=== PATIENT | male | born 1970 | race Caucasian/White ===

== ENCOUNTER → 2019-03-04 | Outpatient (CLI) | payer BC ==
--- NOTE | 2019-03-04 16:13 | XR ---
EXAMINATION TYPE: XR shoulder limited 2 views LT, XR knee limited 2 views LT DATE OF EXAM: 03/04/2019 COMPARISON: NONE HISTORY: 48-year-old male left knee and shoulder pain. FINDINGS: Left shoulder: Moderate degenerative joint space narrowing and marginal spurring at the acromioclavicular joint. Sub acromial space is preserved. No tenderness or calcifications. No acute fracture, subluxation, or disl ocation. Visualized left hemithorax is clear. Left knee: No acute fracture, subluxation, or dislocation seen. No significant knee joint effusion. The knee is completely extended. IMPRESSION: Left shoulder and knee without acute osseous abnormality seen. 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
== END | disposition home or self-care (01) ==
LOC: RADXRYALE 12:09
PROVIDERS: ATTEND Internal Medicine
DX: M19.012 Primary osteoarthritis, left shoulder (principal)

== ENCOUNTER → 2024-05-11 | Outpatient (CLI) | payer BC ==
--- NOTE | 2024-05-11 08:27 | CTL ---
EXAMINATION TYPE: CT Low Dose Lung DATE OF EXAM: 05/11/2024 8:19 AM CLINICAL INDICATION: Male, 54 years old with history of Z12.2 LUNG CA SCR F17.210 CURRENT SMOKER; CUR RENT SMOKER , history of tobacco use. COMPARISON: None. TECHNIQUE: Multiple axial non-contrast scans were obtained from approximately the lung apices through the upper abdomen. Coronal and sagittal reformatted images were obtained. Low dose technique was uti lized. MIP were created on a separate workstation and submitted for review. CT DLP: 84.4 mGycm, Automated exposure control for dose reduction was used. CT Contrast: Contrast used: None Oral contrast used: None FINDINGS: ======== Lack of intravenous contrast and low dose technique limits the evaluation of the vascular and soft ti ssue structures. LUNGS: No evidence of pulmonary fibrosis. No evidence of focal consolidation, pneumothorax or pleural effusion. Centrilobular emphysema changes. Nodules: RUL: 9.1 mm series 5 image 19. Solid parenchymal abnormality series 5 image 38. RML: 7.4 mm series 7 image 44, RLL: None. MARIBEL: 5 mm series 5 image 29. LLL: None. Other scattered sub-4 mm parenchymal abnormalities scattered throughout the lungs. AIRWAY: Patent and unremarkable. HEART: Size within normal limits. MEDIASTINUM: No gross evidence of adenopathy. Partially calcified lymph nodes in the mediastinum. VASCULATURE: No aortic aneurysm. MUSCULOSKELETAL: No acute osseous abnormalities SOFT TISSUES/LYMPH NODES: Unremarkable. LOWER NECK: No significant findings. UPPER ABDOMEN: Scattered calcified granulomas in the spleen. IMPRESSION: 1. Right upper lobe 9 mm right middle lobe 7 mm pulmonary nodules.e. 2. Moderate emphysema. 3. Sequela of chronic granulomatous disease. CT LUNG RAD AND CT CHEST RECOMMENDATION: Lung-Rad 4A Suspicious: Follow-up 3 month LDCT or PET/CT may be used when there is a > 8 mm solid component. S Modifier (other clinically significant findings): None Recommend smoking cessation (if current smoker), or continuation of smoking cessation (if prior smoke r). Annual screening for lung cancer with low-dose computed tomography is recommended in adults ages 55 to 77 years who have a 30 pack-year smoking history and currently smoke or have quit within the pa st 15 years. Screening should be discontinued once a person has not smoked for 15 years or develops a health problem that substantially limits life expectancy or the ability or willingness to have curat niharika lung surgery. Lung rads 2021 [email or web address] [facility], , 05/11/2024 8:25 AM
== END | disposition home or self-care (01) ==
LOC: RADCTMAIN 07:58
PROVIDERS: ATTEND Family Medicine
CPT/HCPCS: 71271

== ENCOUNTER → 2024-09-13 | Outpatient (CLI) | payer BC ==
--- NOTE | 2024-09-15 16:46 | PE ---
EXAMINATION TYPE: PET CT fusion skull to thigh DATE OF EXAM: 09/13/2024 COMPARISON: Prior low-dose lung screening CT May 11, 2024 HISTORY: Solitary pulmonary nodule TECHNIQUE: Following the intravenous administration of 12.0 mCi of F-18 FDG, whole body images are p erformed from the skull base to the midthigh. Images are reviewed on the computer in the coronal, ax ial, and sagittal planes. Reconstructed rotating images are created on independent workstation and r eviewed on the computer. A localization and attenuation correction CT is performed in conjunction w ith the PET scan. Blood glucose level equals 95. SCAN: Initial Scan FINDINGS: SKULL BASE AND NECK: No suspicious abnormal hypermetabolic uptake. CHEST, MEDIASTINUM, AND HILAR REGION: At least moderate underlying emphysematous change is redemonstr ated. There is a spiculated 9 mm nodule in the right upper lobe redemonstrated with abnormal hypermet abolic uptake, max SUV is 5.51. There is a 10 mm right lower lung nodule axial image 119 with abnorma l hypermetabolic uptake, Max SUV is 3.03. There is abnormal hypermetabolic uptake in the 1.3 x 1.1 cm right tracheobronchial lymph node axial i mage 94, max SUV is 4.85. ABDOMEN AND PELVIS: No suspicious abnormal hypermetabolic uptake. Normal excretion is seen. No hyperm etabolic adrenal masses are noted. OSSEOUS STRUCTURES: No suspicious abnormal hypermetabolic uptake. OTHER CT: Moderate mucosal thickening in the left maxillary sinus with dependent fluid. Multiple calcified mediastinal lymph nodes are seen. Multiple round calcifications of the spleen cons istent with products of old granulomatous disease. Sigmoid colonic diverticulosis is present. Surgical changes in the cervical spine is noted. IMPRESSION: Abnormal hypermetabolic uptake suspicious for malignancy in 2 right lung nodules and slig htly enlarged mediastinal lymph node. No metastatic disease is seen. [facility], , 09/15/2024 4:44 PM
== END | disposition home or self-care (01) ==
LOC: RADPETMAIN 07:56
PROVIDERS: ATTEND Family Medicine
DX: R91.1 Solitary pulmonary nodule (principal); R59.0 Localized enlarged lymph nodes; R94.8 Abnormal results of function studies of other organs and systems
CPT/HCPCS: 78815; A9552

== ENCOUNTER 2024-11-27 14:36 | Emergency (ER) | payer BC, OTHER ==
[2024-11-27 14:42] VITALS: RESP 18
--- NOTE | 2024-11-27 15:37 | ED ---
General Adult HPI - General Chief complaint: Skin/Abscess/Foreign Body Stated complaint: [facility]HS metal in nose Time Seen by Provider: 11/27/24 14:43 Source: patient, RN notes reviewed Mode of arrival: ambulatory Limitations: no limitations - History of Present Illness Initial comments: 54-year-old male presents to the emergency department for evaluation of potential metal in his nose. Patient states that a metal pin broke into pieces while he was at work on Monday. He notes that he had foreign body sensation in the left side of his nose. He took a magnet over his nose and felt that it was pulling. He denies any pain. Denies any malodorous nasal drainage. He is up-to-date on tetanus vaccine. - Related Data Previous Rx's Medication Instructions Recorded Cephalexin [Keflex] 500 mg PO Q6HR #28 cap 11/27/24 Allergies Allergy/AdvReac Type Severity Reaction Status Date / Time No Known Allergies Allergy Verified 11/27/24 14:42 Review of Systems ROS Statement: Those systems with pertinent positive or pertinent negative responses have been documented in the HPI. ROS Other: All systems not noted in ROS Statement are negative. Past Medical History Past Medical History: No Reported History History of Any Multi-Drug Resistant Organisms: None Reported Past Surgical History: Appendectomy Past Psychological History: No Psychological Hx Reported Smoking Status: Never smoker Past Alcohol Use History: Daily Past Drug Use History: Marijuana General Exam Limitations: no limitations General appearance: alert, in no apparent distress Head exam: Present: atraumatic, normocephalic, normal inspection Eye exam: Present: normal appearance, PERRL, EOMI. Absent: scleral icterus, conjunctival injection, periorbital swelling ENT exam: Present: normal exam, mucous membranes moist, other (There is an abrasion to the left side of the nose with no visible foreign body within the nare) Respiratory exam: Present: normal lung sounds bilaterally. Absent: respiratory distress, wheezes, rales, rhonchi, stridor Cardiovascular Exam: Present: regular rate, normal rhythm, normal heart sounds. Absent: systolic murmur, diastolic murmur, rubs, gallop, clicks Neurological exam: Present: alert, oriented X3 Psychiatric exam: Present: normal affect, normal mood Skin exam: Present: warm, dry, normal color, abrasion (See above). Absent: intact, rash Course Vital Signs 11/27/24 11/27/24 14:39 17:46 Temperature 97.9 F 98.0 F Pulse Rate 92 86 Respiratory 18 18 Rate Blood Pressure 150/91 146/86 O2 Sat by Pulse 98 99 Oximetry Medical Decision Making - Medical Decision Making Was pt. sent in by a medical professional or institution ([facility], [facility], urgent care, hospital, or fdc...) When possible be specific @ -No Did you speak to anyone other than the patient for history (EMS, parent, family, police, friend...)? What history was obtained from this source @ -No Did you review nursing and triage notes (agree or disagree)? Why? @ -I reviewed and agree with nursing and triage notes Were old charts reviewed (outside hosp., previous admission, EMS record, old EKG, old radiological studies, urgent care reports/EKG's, fdc records)? Report findings @ -No old charts were reviewed Differential Diagnosis (chest pain, altered mental status, abdominal pain women, abdominal pain men, vaginal bleeding, weakness, fever, dyspnea, syncope, headache, dizziness, GI bleed, back pain, seizure, CVA, palpatations, mental health, musculoskeletal)? @ -Nasal foreign body, soft tissue foreign body, abrasion, this list is not all inclusive EKG interpreted by me (3pts min.). @ -None X-rays interpreted by me (1pt min.). @ -None done CT interpreted by me (1pt min.). @ -CT of the facial bones revealsForeign body in the left aspect of the nose U/S interpreted by me (1pt. min.). @ -None done What testing was considered but not performed or refused? (CT, X-rays, U/S, labs)? Why? @ -None What meds were considered but not given or refused? Why? @ -None Did you discuss the management of the patient with other professionals (professionals i.e. JA Ghosh, [facility], lab, RT, psych nurse, oncology social work, wire drawing setter, teacher, special service officer, caseworker protective services)? Give summary @ -I discussed the management with ENT, Dr. Manzano who recommends antibiotics and follow-up in the office Was smoking cessation discussed for >3mins.? @ -No Was critical care preformed (if so, how long)? @ -No Were there social determinants of health that impacted care today? How? (Homelessness, low income, unemployed, alcoholism, drug addiction, transportation, low edu. Level, literacy, decrease access to med. care, shelter, rehab)? @ -No Was there de-escalation of care discussed even if they declined (Discuss DNR or withdrawal of care, Hospice)? DNR status @ -No What co-morbidities impacted this encounter? (DM, HTN, Smoking, COPD, CAD, Cancer, CVA, ARF, Chemo, Hep., AIDS, mental health diagnosis, sleep apnea, morbid obesity)? @ -None Was patient admitted / discharged? Hospital course, mention meds given and route, prescriptions, significant lab abnormalities, going to OR and other pertinent info. @ -Discharge. Patient presented emergency department for potential nasal foreign body. On examination, I did not visualize foreign body in the nare. CT of the facial bones was obtained revealing a foreign body in the left aspect of the nose. I discussed case with ENT, Dr. Cortes who recommends antibiotics and follow-up in the office. The patient will be started on prophylactic antibiotics and follow-up with ENT in the office. He is understanding agreeable plan. Patient stable at time of discharge. Case discussed with Dr. Steel Undiagnosed new problem with uncertain prognosis? @ -No Drug Therapy requiring intensive monitoring for toxicity (Heparin, Nitro, Insulin, Cardizem)? @ -No Were any procedures done? @ -No Diagnosis/symptom? @ -Nasal foreign body Acute, or Chronic, or Acute on Chronic? @ -Acute Uncomplicated (without systemic symptoms) or Complicated (systemic symptoms)? @ -Uncomplicated Side effects of treatment? @ -No Exacerbation, Progression, or Severe Exacerbation? @ -No Poses a threat to life or bodily function? How? (Chest pain, USA, PA, pneumonia, PE, COPD, DKA, ARF, appy, cholecystitis, CVA, Diverticulitis, Homicidal, Suicidal, threat to staff... and all critical care pts) @ -No Disposition Clinical Impression: Nasal foreign body, Soft tissues foreign body Disposition: HOME SELF-CARE Condition: Stable Instructions (If sedation given, give patient instructions): Soft Tissue Foreign Body (ED) Additional Instructions: Please follow up with ear, nose, and throat. production support manager antibiotics and take as prescribed. Return to the emergency department for new or worsening symptoms. Prescriptions: Cephalexin [Keflex] 500 mg PO Q6HR #28 cap Is patient prescribed a controlled substance at d/c from ED?: No Referrals: Suman Umana DO [Primary Care Provider] - 1-2 days Rodriguez Manzano MD [STAFF PHYSICIAN] - 1-2 days
--- NOTE | 2024-11-27 16:09 | CT ---
EXAMINATION TYPE: CT facial bones wo con DATE OF EXAM: 11/27/2024 COMPARISON: None CLINICAL INDICATION: Male, 54 years old with history of ?nasal fb; PHH, Pt comes to with complaint of metal in nose caused by metal alvarez blowing up at work. Pt denies any other issues and hand safety glasses on. TECHNIQUE: CT scan of the sinuses is performed without contrast, axial images are obtained, coronal reformatted images are also reviewed. CT DLP: 425.[address] CTDI: mGy Automated exposure control for dose reduction was used. FINDINGS: There is a radiopaque foreign body in the left aspect of the nose. There are no nasal bone or facial bone fractures. There is mild deviation of nasal septum to the left. There are multifocal areas of mucosal thickening in the left frontal, and bilateral maxillary sinuses . There are no air-fluid levels suggests acute sinusitis. The ostiomeatal complexes are patent. The intraorbital contents appear normal symmetric The mastoid air cells and middle ear cavities are well aerated. IMPRESSION: 1. Foreign body in the left aspect of the nose. 2. No nasal bone or facial bone fractures. 3. Mild chronic inflammatory changes in the paranasal sinuses. [facility], , 11/27/2024 4:07 PM
[2024-11-27 17:48] VITALS: BP 146/86; PULSE 86; TEMP 98
== END 2024-11-27 17:49 | disposition home or self-care (01) ==
LOC: EC 14:36
DX: T17.1XXA Foreign body in nostril, initial encounter (principal); S00.31XA Abrasion of nose, initial encounter; W44.8XXA Other foreign body entering into or through a natural orifice, initial encounter
CPT/HCPCS: 70486; 99283

== ENCOUNTER → 2025-01-16 | Outpatient (CLI) | payer BC ==
--- NOTE | 2025-01-16 15:51 | CT ---
CT thorax with contrast HISTORY: Abnormal lung findings. COMPARISON: CT chest dated 05/11/2024. TECHNIQUE: Multiple axial images are obtained through the thorax following IV contrast material. FINDINGS: There are marked emphysematous changes with an upper lobe predominance. There are 2 spiculated growing masses one in the right upper lobe which has grown from 9 mm to 11 mm and a second spiculated mass in the right middle lobe which has grown from 10.2 mm to 11.2 mm. These are highly suspicious for malignancy and PET scan is recommended for further evaluation. There is no airspace consolidation. There is no pleural effusion or pneumothorax. Great vessels the chest are normal in caliber. There is a 13.5 mm enlarged right hilar lymph node. Limited scanning through the upper abdomen reveals no gross abnormality. There are splenic granulomas . There are no focal osseous lesions. IMPRESSION: 1. 2 growing spiculated nodule/masses in the right lung as described above with right hilar lymphaden opathy. The findings are highly suspicious for malignancy and further evaluation with PET scan is rec ommended. 2. Marked emphysematous changes with an upper lobe predominance. [facility], , 01/16/2025 3:49 PM
== END | disposition home or self-care (01) ==
LOC: RADCTMAIN 15:09
PROVIDERS: ATTEND Internal Medicine
DX: J43.9 Emphysema, unspecified (principal); R91.8 Other nonspecific abnormal finding of lung field
CPT/HCPCS: 71260; Q9967

== ENCOUNTER 2025-01-30 12:56 | Day surgery (SDC) | payer BC ==
[2025-01-29 09:47] VITALS: BMI 23.1
[~2025-01-30 12:56] MED LIST: HYDROmorphone 0.5 MG/0.5 ML SYRINGE IVP PRN; LACTATED RINGERS 1,000 ML IV SCH
[2025-01-30] MEDS: IV FLUID CONTINUATION 1,000 ML IV ONE (13:37)
--- NOTE | 2025-01-30 13:37 | CT ---
EXAMINATION TYPE: CT Chest wo ION protocol DATE OF EXAM: 01/30/2025 COMPARISON: 01/16/2025 CLINICAL INDICATION: Male, 54 years old with history of ION BRONCH; PHH, Ion bronchoscopy TECHNIQUE: CT scan of the thorax is performed without IV contrast. CT DLP: [address] CTDI: mGy Automated exposure control for dose reduction was used. FINDINGS: There are marked emphysematous changes with an upper lobe predominance. There is a 12.8 x 14.5 mm spiculated mass in the right upper lobe and a 15.1 x 8.1 mm spiculated mass in the right middle lobe. There is a 16.5 x 14.6 mm right hilar lymph node. There is no pleural effusion or pneumothorax. There is no airspace consolidation. There are no focal osseous lesions. IMPRESSION: 1. 2 spiculated masses in the right lung, one in the upper lobe and one in the middle lobe as describ ed above 2. 16.5 x 14.6 mm right hilar enlarged lymph node. 3. Findings highly suspicious for lung cancer with metastatic disease. [facility], , 01/30/2025 1:35 PM
[2025-01-30 13:46] VITALS: TEMP 97.7
[2025-01-30] MEDS: ONDANSETRON 4 MG/2 ML VIAL IVP ONE (13:53)
[2025-01-30] MEDS: LACTATED RINGERS 1,000 ML IV SCH (13:53)
[2025-01-30] MEDS: DEXAMETHASONE SOD PHOSPHATE 4 MG/ML 1 ML VIAL IV ONE (13:54)
[2025-01-30] MEDS ORDERED: PHENYLEPHRINE-0.9% NACL SYG 1,000 MCG/10 ML SYRINGE ONE (15:31)
[2025-01-30] MEDS ORDERED: MIDAZOLAM 2 MG/2 ML VIAL ONE (15:31)
[2025-01-30] MEDS ORDERED: fentaNYL (PF) 50 MCG/ML 2 ML AMP ONE (15:31)
[2025-01-30] MEDS ORDERED: GLYCOPYRROLATE 0.2 MG/ML 2 ML VIAL ONE (15:31)
[2025-01-30] MEDS ORDERED: ROCURONIUM 10 MG/ML (5 ML VIAL) IV ONE (15:31)
[2025-01-30] MEDS ORDERED: PROPOFOL 10 MG/ML 20 ML VIAL IV ONE (15:31)
[2025-01-30] MEDS ORDERED: LIDOCAINE 1% INJ 10MG/ML (20 ML MDV) ONE (15:31)
[2025-01-30] MEDS ORDERED: SUCCINYLCHOLINE CHLORIDE 200 MG/10 ML VIAL IV ONE (15:31)
--- NOTE | 2025-01-30 16:59 | FL ---
EXAMINATION TYPE: FL bronchoscopy Intraoperative/procedural fluoroscopic services were provided. CLINICAL INDICATION:Male, 54 years old with history of Lung Nodule; , PHH FINDINGS: Single fluoroscopic image demonstrating right middle lobe bronchoscopy. No radiographic evidence for complication. Total fluoroscopy time is 1.46 min. DAP: 3.0195 Gycm2 Please see the operative/procedural note for further details. [facility], , 01/30/2025 4:56 PM
[2025-01-30 17:45] VITALS: RESP 14
--- NOTE | 2025-01-30 17:48 | XR ---
EXAMINATION TYPE: XR chest 1V portable DATE OF EXAM: 01/30/2025 5:41 PM COMPARISON: Chest radiographs from 07/01/2014, CT chest 01/30/2025, fluoroscopic bronchoscopy image TECHNIQUE: XR chest 1V portable Portable AP radiograph of the chest. CLINICAL INDICATION:Male, 54 years old with history of POST BRONCHOSCOPY; FINDINGS: Lungs/Pleura: Right basilar patchy airspace opacities. No pneumothorax or pleural effusion. Pulmonary vascularity: Unremarkable. Heart/mediastinum: Cardiomediastinal silhouette is unremarkable. Musculoskeletal: No acute osseous pathology. Cervical fusion hardware. Other findings: None Lines/Tubes: Endotracheal tube with distal tip xx cm above the sylvia Nasogastric tube with its distal tip and side-port projecting under the diaphragm. IMPRESSION: Right basilar patchy airspace opacities likely related to bronchoscopy and biopsy changes and known s piculated nodules. No discrete pneumothorax. [facility], , 01/30/2025 5:46 PM
[2025-01-30 18:04] VITALS: BP 130/91; PULSE 87
--- NOTE | 2025-01-30 21:10 | P.PCN ---
Date of Procedure: 01/30/25 Operative Findings: Preoperative Diagnosis: Right middle lobe mass, measuring 15 x 8 mm in size Right upper lobe pulmonary nodule 12 x 40 mm in size Mediastinal lymphadenopathy with partial calcification, 1.6 cm. Postoperative Diagnosis: Same Procedure(s) Performed: Flexible bronchoscopy Robotic-assisted bronchoscopy and addition to radial ultrasound evaluation of the right middle lobe pulmonary nodule Robotic-assisted transbronchial transbronchial needle aspirate, transbronchial biopsies and bronchoalveolar lavage of the right middle lobe pulmonary nodule Endobronchial ultrasound Transbronchial needle aspirate of station 4R lymph node Anesthesia: MITCHELA Surgeon: Rachel Acuña Estimated Blood Loss (ml): 0 Pathology: other Condition: stable Disposition: same day Operative Findings: A physical exam was performed. Informed consent was obtained from the patient after explaining all the risks (pneumothorax, life threatening bleeding, infection and adverse effects due to medications), benefits and alternatives to the procedure which the patient appeared to understand and so stated. The patient was connected to the monitoring devices. General anesthesia was induced and the patient was intubated by anesthesia. A final timeout was performed and the procedure confirmed by the attending staff bronchoscopist. The bronchoscope was inserted and the airway examined. Airway examination shows that the distal trachea, Right upper lobe and middle lobe and lower lobe bronchi was all within normal limits. Patient left mainstem bronchus is within normal limits. Examination of left lower lobe was within normal limits. The left upper lobe bronchus and the lingular segment was also patent within normal limits. The flexible bronchoscope was removed and the robotic bronchoscope was inserted. Registration was completed. I next guided the robotic bronchoscope using the navigation system into the right right middle lobe pulmonary nodule. Once in proper position, the bronchoscope was frozen. The radial EBUS probe was placed through the bronchoscope and confirmed abnormal u/s images vs normal lung. A needle was placed through the working channel and another fluoroscopic guidance, we sampled the area in the right middle lobe where the nodule was present. We then used a Jeremías biopsy pattern with ultrasound confirmation for 2 additional passes with the needle. Following that, a forceps were next introduced through working channel and extended the appropriate distance and 3 transbronchial biopsies were performed using fluoroscopic guidance. The u/s probe was then reinserted to confirm location. When confirmed this process was repeated for a total of 8-10 transbronchial biopsies. U/S evaluation was then used to confirm location. Following that, a total of 60 cc of saline was infused into the right upper lobe and approximately 20cc of saline was aspirated and the bronchial lavage was sent for cytologic evaluation. Following that, the robotic bronchoscope was advanced to the right upper lobe. Unable to identify the right upper lobe pulmonary nodule. The nodule was not visible on regular fluoroscopy and at the same time there was no ultrasonic signal on the radial ultrasound. Based on that, no biopsy of the right upper lobe pulmonary nodule was done. Following that, the robot bronchoscope was removed. The endobronchial ultrasound was inserted and a full evaluation of the mediastinal lymph nodes was done. Upon careful investigation with endobronchial ultrasound, a 1.6 cm right paratracheal lymph node was identified at the level of station 4R. Using a 22- gauge position needle, transbronchial needle aspirate of the right paratracheal station 4R lymph node was done and a total of 5 passes was taken without any complications. Endobronchial ultrasound was removed. Note rest of the midsternal stations showed no significant pathologic mediastinal lymphadenopathy. Flex. bronchoscope was inserted and regular suctioning was done. At the completion of the procedure, no residual secretions or bloody material within the airway. The patient was extubated. FINDINGS: 1.The airways appeared normal 2 Successful navigation, ultrasonographic identification, and biopsies of right middle lobe pulmonary nodule 3.The the radial ultrasound view was concentric 4 endobronchial ultrasound and biopsy of right paratracheal lymph node RECOMMENDATIONS: Await pathology and cytology results The referring physician will be alerted to the results when available. The patient was advised to follow up with the referring physician with the biopsy results Patient will be called with results.
== END 2025-01-30 18:15 | disposition home or self-care (01) ==
LOC: ORWHC2ENDO 12:56
PROVIDERS: ATTEND Internal Medicine Critical Care Medicine
DX: C34.2 Malignant neoplasm of middle lobe, bronchus or lung (principal); J44.9 Chronic obstructive pulmonary disease, unspecified; F17.210 Nicotine dependence, cigarettes, uncomplicated; G89.4 Chronic pain syndrome; Z79.899 Other long term (current) drug therapy
CPT/HCPCS: 88108; 88305; 88341; 87070; 87205; 87116; 87102; 87206; 71045; 71250; 31628; 31629; 31624; 31652; 31654; J2250; J0330; J1100; J2405; J2003; J3010; J2704; J2371; J1596; S2900